=== PATIENT | male | born 1985 | race African-American/Black ===

== ENCOUNTER 2021-04-03 01:15 | Emergency (ER) | payer OTHER ==
[~2021-04-03] VITALS: Ht 160 cm; Wt 90.1 kg
[2021-04-03] MEDS ORDERED: ZOLO25TA PO (01:44)
[2021-04-03] MEDS ORDERED: LIDOCAINE W/EPINEPHRINE 1% 20ML VIAL SC ONE (04:00)
--- NOTE | 2021-04-03 04:41 | REPVR ---
PROCEDURE INFORMATION: Exam: XR Right Finger(s) Exam date and time: 04/03/2021 4:17 AM Age: 35 years old Clinical indication: Pain; Finger(s); Right; Patient HX: Thumb lac; Additional info: Trauma thumb only TECHNIQUE: Imaging protocol: XR Right fingers. Views: Minimum 2 views. COMPARISON: No relevant prior studies available. FINDINGS: Bones/joints: Bones are intact. No fracture. No dislocation. Soft tissues: Laceration at the base of the thumb. No radiopaque foreign body. IMPRESSION: Soft tissue laceration. No fracture. Electronically signed by: Mahesh Kelly On 04/03/2021 04:40:46 AM
[2021-04-03 05:25] VITALS: BP 122/62
== END 2021-04-03 05:25 | disposition home or self-care (01) ==
LOC: M ED 01:15
DX: S61.011A Laceration without foreign body of right thumb without damage to nail, initial encounter (principal); Y92.9 Unspecified place or not applicable; Y93.9 Activity, unspecified; Y99.1 Military activity; Z88.8 Allergy status to other drugs, medicaments and biological substances